=== PATIENT | male | born 1955 | race Caucasian/White ===

== ENCOUNTER 2018-02-23 12:29 | Emergency (ER) | payer OTHER ==
[~2018-02-23] VITALS: Ht 180.3 cm; Wt 190.9 kg
[~2018-02-23 12:29] MED LIST: CARDIZEM CD180 MG PO; FUROSEMIDE40 MG PO; HUMULIN 70100 UNIT/3 SC; LASIX40 MG PO; LEVEMIR FL100 UNIT/1 SC; LOSARTAN POTAS100 MG PO; METFORMIN HCL1000 MG PO; NORVASC5 MG PO; PAXIL20 MG PO; ST. JOSEPH ASPI81 MG PO; VENTOLIN HFA18 GM IH; VICTOZA 2-0.6 MG/0.1 SC
[2018-02-23] MEDS ORDERED: PERCOCET 5/31 TABLET PO (15:16)
[2018-02-23 16:03] VITALS: BP 173/88
== END 2018-02-23 16:09 | disposition home or self-care (01) ==
LOC: EME 12:29
PROC: 3E0234Z Introduction of Serum, Toxoid and Vaccine into Muscle, Percutaneous Approach (ICD-10-PCS; principal; 2018-02-23)
PROC: 0HQ1XZZ Repair Face Skin, External Approach (ICD-10-PCS; principal; 2018-02-23)
DX: S01.21XA Laceration without foreign body of nose, initial encounter (principal); S20.212A Contusion of left front wall of thorax, initial encounter; S91.111A Laceration without foreign body of right great toe without damage to nail, initial encounter; W18.30XA Fall on same level, unspecified, initial encounter; Y93.01 Activity, walking, marching and hiking; Z23 Encounter for immunization; G47.30 Sleep apnea, unspecified; J45.909 Unspecified asthma, uncomplicated; E11.9 Type 2 diabetes mellitus without complications; Z79.4 Long term (current) use of insulin; I11.0 Hypertensive heart disease with heart failure; I50.9 Heart failure, unspecified; Z79.82 Long term (current) use of aspirin; F41.9 Anxiety disorder, unspecified; Z87.891 Personal history of nicotine dependence
CPT/HCPCS: 70450; 70486; 71250; 73630; 99281; 99283

== ENCOUNTER → 2018-05-15 | Outpatient (CLI) | payer OTHER ==
[~2018-05-15] VITALS: Ht 180.3 cm; Wt 190.9 kg
[~2018-05-15] MED LIST changes: +BASAGLAR K100 UNIT/1 SC; +BYDUREON P2 MG/0.65 SC; +HUMALOG KW200 UNIT/1 SC; +INVOKAMET 50-11 EACH PO; +INVOKAMET XR 51 EAC1 PO; +PERCOCET 5/31 TABLET PO
== END | disposition home or self-care (01) ==
LOC: AMB 12:56
PROVIDERS: Internal Medicine Gastroenterology
DX: D37.4 Neoplasm of uncertain behavior of colon (principal); D12.7 Benign neoplasm of rectosigmoid junction; D12.2 Benign neoplasm of ascending colon; D12.3 Benign neoplasm of transverse colon; K63.5 Polyp of colon; K64.8 Other hemorrhoids; K57.30 Diverticulosis of large intestine without perforation or abscess without bleeding; I11.0 Hypertensive heart disease with heart failure; I50.9 Heart failure, unspecified; E11.9 Type 2 diabetes mellitus without complications; J45.909 Unspecified asthma, uncomplicated; Z87.891 Personal history of nicotine dependence; Z79.4 Long term (current) use of insulin
CPT/HCPCS: 82948; 88305; 93005; J2250